=== PATIENT | male | born 1975 | race Caucasian/White ===

== ENCOUNTER 2016-09-08 22:32 | Emergency (ER) | payer MEDICARE, MEDICAID ==
[~2016-09-08] VITALS: Ht 167.6 cm; Wt 88.5 kg
[~2016-09-08 22:32] MED LIST: MS CONTIN15 MG PO; OXYCODONE HCL5 MG PO
== END 2016-09-08 23:45 | disposition short-term general hospital (02) ==
LOC: ER 22:32
DX: F41.9 Anxiety disorder, unspecified (principal); R11.2 Nausea with vomiting, unspecified; Z79.899 Other long term (current) drug therapy; Z88.0 Allergy status to penicillin; Z88.2 Allergy status to sulfonamides

== ENCOUNTER 2016-10-09 16:13 | Emergency (ER) | payer MEDICARE, MEDICAID ==
[~2016-10-09] VITALS: Ht 167.6 cm; Wt 88.5 kg
== END 2016-10-09 16:46 | disposition short-term general hospital (02) ==
LOC: ER 16:13
DX: F32.9 Major depressive disorder, single episode, unspecified (principal); F41.9 Anxiety disorder, unspecified; Z88.2 Allergy status to sulfonamides; Z88.0 Allergy status to penicillin; Z79.899 Other long term (current) drug therapy